=== PATIENT | male | born 1980 | race Caucasian/White ===

== ENCOUNTER 2017-05-15 11:35 | Emergency (ER) | payer SELFPAY ==
[2017-05-15] MEDS ORDERED: METRONIDAZOLE 250 MG TABLET PO ONE (11:36)
--- NOTE | 2017-05-15 11:40 | Emergency Department Record ---
History of Present Illness - General Stated complaint: exposure Time Seen by Provider: 05/15/17 11:36 Source: Patient Mode of Arrival: Ambulatory Limitations: No limitations - History of Present Illness Initial comments: 37 yo male presents after STD exposure. His significant other tested positive for trichomonas. He is completely asymptomatic. He presents for treatment. Complaint: Other (STD Trichomonas exposure) -: Unknown Radiation: None Severity: Mild Consistency: Other Improves with: Other Worsens with: Sexual intercourse, Other Reports: Denies other symptoms - Related Data Allergies Allergy/AdvReac Type Severity Reaction Status Date / Time No Known Drug Allergies Allergy Verified 05/15/17 11:39 Review of Systems Constitutional: Denies: Chills, Fever, Malaise, Weakness Eyes: Denies: Eye discharge ENT: Denies: Congestion, Throat pain Respiratory: Denies: Cough Cardiovascular: Denies: Chest pain, Syncope Endocrine: Denies: Fatigue Gastrointestinal: Denies: Abdominal pain, Diarrhea, Nausea, Vomiting Genitourinary: Denies: Dysuria, Frequency, Hematuria, Incontinence, Retention, Testicular pain, Testicular mass, Urgency Musculoskeletal: Denies: Back pain Skin: Denies: Bruising, Change in color, Rash Neurological: Denies: Headache Psychiatric: Denies: Anxiety Hematological/Lymphatic: Denies: Blood Clots, Easy bleeding, Easy bruising, Swollen glands Physical Exam - General General Appearance: Alert, Oriented x3, Cooperative, No acute distress Limitations: No limitations - Head Head exam: Normal inspection - Eye Eye exam: Normal appearance - ENT ENT exam: Normal exam Ear exam: Normal external inspection Nasal Exam: Normal inspection Mouth exam: Normal external inspection - Neck Neck exam: Normal inspection - Respiratory Respiratory exam: negative: Respiratory distress - Rectal Rectal exam: Deferred - exam: Deferred - Neurological Neurological exam: Alert, Oriented X3. negative: Altered - Psychiatric Psychiatric exam: Normal affect, Normal mood - Skin Skin exam: Dry, Intact, Normal color, Warm Disposition Disposition: Discharge Clinical Impression: STD exposure Disposition: Home, Self-Care Condition: (1) Good Instructions: Trichomoniasis (ED) Additional Instructions: No unprotected sex one week You have cultures sent. If they are positive your will be called Time of Disposition: 11:39 Quality - Quality Measures Quality Measures: N/A - Blood Pressure Screening Does Patient Have Any of the Following: No Systolic Measurement: ~ Screening for High Blood Pressure: < Pre-Hypertensive BP, F/U Documented > [ G8950] Pre-Hypertensive Follow-up Interventions: Referral to alternative/primary care provider.
[2017-05-15 12:36] LABS: URINE APPEARANCE SL CLOUDY; URINE BILIRUBIN NEGATIVE (NEGATIVE); URINE BLOOD NEGATIVE (NEGATIVE); URINE COLOR YELLOW; URINE GLUCOSE (UA) NEGATIVE (NEGATIVE); URINE KETONE NEGATIVE (NEGATIVE); URINE LEUKOCYTE ESTERASE NEGATIVE (NEGATIVE); URINE NITRITE NEGATIVE (NEGATIVE); URINE PROTEIN NEGATIVE (NEGATIVE); URINE UROBILINOGEN 0.2 E.U./dL (0.20 - 1.00)
== END 2017-05-15 11:55 | disposition home or self-care (01) ==
LOC: ER 11:35
DX: Z20.2 Contact with and (suspected) exposure to infections with a predominantly sexual mode of transmission (principal)
CPT/HCPCS: 81003; 99283

== ENCOUNTER 2018-03-06 10:25 | Emergency (ER) | payer MEDICAID ==
[2018-03-06] MEDS ORDERED: MAGNESIUM HYDROXIDE/AL HYDROX 30 ML, LIDOCAINE VISC 2% 15ML 15 ML PO ONE ×2 (11:15)
[2018-03-06] MEDS ORDERED: 0.9 % SODIUM CHLORIDE 1000ML 1,000 ML IV PRN (11:16)
--- NOTE | 2018-03-06 11:21 | Emergency Department Record ---
History of Present Illness - General Chief Complaint: Abdominal Pain Stated Complaint: ABD PAIN Time Seen by Provider: 03/06/18 11:09 Source: Patient Mode of Arrival: Ambulatory - History of Present Illness Initial Comments: epigastric pain and he was using motrin for a nose injury but stopped when his epigastric pain started on mar 03 and he stopped his augmentin which was for a sinus infection which is better and he has three pills left. No Alcohol and he has used pepto and he has black stool. Onset/Timin -: Days(s) Location: Epigastric Radiation: None Migration to: No migration Severity: Moderate Severity scale (1-10): 7 Quality: Sharp, Stabbing Consistency: Constant, Intermittent Improves With: Nothing Worsens With: Eating Associated Symptoms: Denies other symptoms - Related Data Previous Rx's Medication Instructions Recorded Omeprazole 20 mg PO DAILY #30 cap.dr 03/06/18 Sucralfate [Carafate] 1 g PO QID #30 udc 03/06/18 Sucralfate [Carafate] 1 gm PO QIDACHS #30 tablet 03/06/18 Allergies Allergy/AdvReac Type Severity Reaction Status Date / Time No Known Drug Allergies Allergy Verified 03/06/18 10:28 Travel Screening - Travel/Exposure Within Last 30 Days Have you traveled within the last 30 days?: No - Travel/Exposure Within Last Year Have you traveled outside the [place] in the last year?: No - Additonal Travel Details Have you been exposed to anyone with a communicable illness?: No - Travel Symptoms Symptom Screening: None Review of Systems Reviewed: No additional complaints except as noted below Constitutional: Reports: As per HPI. Denies: Chills, Fever, Malaise, Night sweats, Weakness, Weight change Eyes: Reports: As per HPI. Denies: Eye discharge, Eye pain, Photophobia, Vision change ENT: Reports: As per HPI. Denies: Congestion, Dental pain, Ear pain, Epistaxis , Hearing loss, Throat pain Respiratory: Reports: As per HPI. Denies: Cough, Dyspnea, Hemoptysis, Stridor, Wheezes Cardiovascular: Reports: As per HPI. Denies: Arrhythmia, Chest pain, Dyspnea on exertion, Edema, Murmurs, Orthopnea, Palpitations, Paroxysmal nocturnal dyspnea, Rheumatic Fever, Syncope Endocrine: Reports: As per HPI. Denies: Fatigue, Heat or cold intolerance, Polydipsia, Polyuria Gastrointestinal: Reports: As per HPI, Abdominal pain. Denies: Constipation, Diarrhea, Hematemesis, Hematochezia, Melena, Nausea, Vomiting Genitourinary: Reports: As per HPI. Denies: Dysuria, Frequency, Hematuria, Incontinence, Retention, Testicular pain, Testicular mass, Urgency Musculoskeletal: Reports: As per HPI. Denies: Arthralgia, Back pain, Gout, Joint swelling, Myalgia, Neck pain Skin: Reports: As per HPI. Denies: Bruising, Change in color, Change in hair/ nails, Lesions, Pruritus, Rash Neurological: Reports: As per HPI. Denies: Abnormal gait, Confusion, Headache, Numbness, Paresthesias, Seizure, Tingling, Tremors, Vertigo, Weakness Psychiatric: Reports: As per HPI. Denies: Anxiety, Auditory hallucinations, Depression, Homicidal thoughts, Suicidal thoughts, Visual hallucinations Hematological/Lymphatic: Reports: As per HPI. Denies: Anemia, Blood Clots, Easy bleeding, Easy bruising, Swollen glands Past Medical History - SOCIAL HISTORY Smoking Status: Current every day smoker Alcohol Use: None Drug Use: Heavy Drug Use Detail:: Marijuana - RESPIRATORY Hx Respiratory Disorders: No - CARDIOVASCULAR Hx Cardio Disorders: No - NEURO Hx Neuro Disorders: No - GI Hx GI Disorders: No - Hx Genitourinary Disorders: No - ENDOCRINE Hx Endocrine Disorders: No - MUSCULOSKELETAL Hx Musculoskeletal Disorders: No - PSYCH Hx Psych Problems: No - HEMATOLOGY/ONCOLOGY Hx Hematology/Oncology Disorders: No Family Medical History Any Significant Family History?: No Physical Exam - General General Appearance: Alert, Oriented x3, Cooperative, Mild distress - Head Head exam: Normal inspection - Eye Eye exam: Normal appearance, PERRL Pupils: Normal accommodation - ENT ENT exam: Normal exam, Mucous membranes moist, Normal external ear exam, Normal orophraynx, TM's normal bilaterally Ear exam: Normal external inspection. negative: External canal tenderness Nasal Exam: Normal inspection. negative: Discharge, Sinus tenderness Mouth exam: Normal external inspection, Tongue normal Teeth exam: Normal inspection. negative: Dental caries Throat exam: Normal inspection. negative: Tonsillar erythema, Tonsillar exudate - Neck Neck exam: Normal inspection, Full ROM. negative: Tenderness - Respiratory Respiratory exam: Normal lung sounds bilaterally. negative: Respiratory distress - Cardiovascular Cardiovascular Exam: Regular rate, Normal rhythm, Normal heart sounds - GI/Abdominal GI/Abdominal exam: Soft, Normal bowel sounds. negative: Tenderness - Rectal Rectal exam: Deferred - exam: Deferred - Extremities Extremities exam: Normal inspection, Full ROM, Normal capillary refill. negative: Tenderness - Back Back exam: Reports: Normal inspection, Full ROM. Denies: Muscle spasm, Rash noted, Tenderness - Neurological Neurological exam: Alert, Normal gait, Oriented X3, Reflexes normal - Psychiatric Psychiatric exam: Normal affect, Normal mood - Skin Skin exam: Dry, Intact, Normal color, Warm Course Vital Signs 03/06/18 10:29 Temperature 97.8 F Pulse Rate 658 H Respiratory 18 Rate Blood Pressure 106/83 Pulse Ox 100 - Reevaluation(s) Reevaluation #1: rectal exam and hemoccult stool neg done in ED, brown loose stool 03/06/18 12:13 Reevaluation #2: feeling better 03/06/18 12:18 Medical Decision Making - Lab Data Result diagrams: 03/06/18 11:20 03/06/18 11:20 Disposition Clinical Impression: Abdominal pain Qualifiers: Abdominal location: epigastric Qualified Code(s): R10.13 - Epigastric pain Gastritis Qualifiers: Gastritis type: unspecified gastritis Chronicity: acute Gastritis bleeding: without bleeding Qualified Code(s): K29.00 - Acute gastritis without bleeding Disposition: Home, Self-Care Condition: (1) Good Instructions: Gastritis (ED) Additional Instructions: follow up with family in 3 days No motrin ,advil or alleve or ibuprofen use tylenol for pain Prescriptions: Omeprazole 20 mg PO DAILY #30 Sucralfate [Carafate] 1 g PO QID #30 udc Sucralfate [Carafate] 1 gm PO QIDACHS #30 tablet Forms: Patient Portal Access Time of Disposition: 12:18 Quality - Quality Measures Quality Measures: N/A - Blood Pressure Screening Does Patient Have Any of the Following: No Blood Pressure Classification: Pre-Hypertensive BP Reading Systolic Measurement: 106 Diastolic Measurement: 83 Screening for High Blood Pressure: < Pre-Hypertensive BP, F/U Documented > [ G8950] Pre-Hypertensive Follow-up Interventions: Referral to alternative/primary care provider.
[2018-03-06 11:33] LABS: BASO % 0.4 % (0-6); EOS % 8.4 % (0-6); GRAN % 50.8 % (47-80); HEMATOCRIT 43.2 % (42.0-52.0); HEMOGLOBIN 14.2 gm/dl (14.0-18.0); MEAN CELL VOLUME 94.1 fl (81-97); MEAN CORPUSCULAR HEMOGLOBIN 30.9 pg (27-33); MEAN CORPUSCULAR HGB CONC 32.9 g/dl (32-36); MEAN PLATELET VOLUME 10.3 fl (7.4-10.4); MONO % 11.4 % (0-9); PLATELET COUNT 243 K/uL (130-400); RED BLOOD COUNT 4.59 M/uL (4.40-5.70); RED CELL DISTRIBUTION WIDTH 13.7 % (11.5-14.5); WHITE BLOOD COUNT W/O DIFF 7.2 K/uL (4.2-12.2)
[2018-03-06 11:42] LABS: BLOOD UREA NITROGEN 10 mg/dL (6-20); CREATININE 0.8 mg/dL (0.7-1.2); EST GLOMERULAR FILTRATION RATE > 60 mL/min
[2018-03-06 11:42] LABS: URINE APPEARANCE CLEAR; URINE BILIRUBIN NEGATIVE (NEGATIVE); URINE BLOOD NEGATIVE (NEGATIVE); URINE COLOR YELLOW; URINE GLUCOSE (UA) NEGATIVE (NEGATIVE); URINE KETONE NEGATIVE (NEGATIVE); URINE LEUKOCYTE ESTERASE NEGATIVE (NEGATIVE); URINE NITRITE NEGATIVE (NEGATIVE); URINE PROTEIN NEGATIVE (NEGATIVE); URINE UROBILINOGEN 0.2 E.U./dL (0.20 - 1.00)
[2018-03-06 11:43] LABS: TOTAL PROTEIN 6.9 g/dL (6.6-8.7)
[2018-03-06 11:45] LABS: GLUCOSE,RANDOM 87 mg/dL (74-109)
[2018-03-06 11:46] LABS: AMPHETAMINE SCREEN URINE DETECTED; BARBITURATE SCREEN URINE NOT DETECTED; BENZODIAZEPINE SCREEN URINE NOT DETECTED; COCAINE SCREEN URINE NOT DETECTED; METHADONE SCREEN URINE NOT DETECTED; METHAMPHETAMINE SCREEN NOT DETECTED; OPIATE SCREEN URINE NOT DETECTED; OXYCODONE SCREEN URINE NOT DETECTED; PHENCYCLIDINE SCREEN URINE NOT DETECTED; PROPOXYPHENE SCREEN URINE NOT DETECTED; THC SCREEN URINE DETECTED; TRICYCLIC ANTIDEPRESSANT SCRN NOT DETECTED
[2018-03-06 11:48] LABS: ALBUMIN 4.2 g/dL (4.0-5.0); ALKALINE PHOSPHATASE 50 U/L (40-129); ALT/SGPT 11 U/L (<41); AST/SGOT 13 U/L (10.0-50.0)
[2018-03-06 11:50] LABS: BILIRUBIN,DIRECT < 0.2 mg/dL (0-0.3)
== END 2018-03-06 12:30 | disposition home or self-care (01) ==
LOC: ER 10:25
DX: K29.00 Acute gastritis without bleeding (principal); R10.13 Epigastric pain; F17.210 Nicotine dependence, cigarettes, uncomplicated
CPT/HCPCS: 80048; 80076; 80305; 81003; 83690; 85025; 99284

== ENCOUNTER 2018-04-08 10:32 | Emergency (ER) | payer MEDICAID ==
[2018-04-08] MEDS ORDERED: CEPHALEXIN 500 MG CAPSULE PO STA (10:51)
--- NOTE | 2018-04-08 11:04 | Emergency Department Record ---
History of Present Illness - General Chief Complaint: Wound, puncture Stated Complaint: NAIL PUNCTURE Time Seen by Provider: 04/08/18 10:46 Source: Patient Mode of Arrival: Ambulatory Limitations: No limitations - History of Present Illness Initial Commments: The patient is here due to L wrist pain. He fell 2 days ago and sustained 2 PW' s from a nail to the proximal L hypothenar area. Since he has developed pain in that area along with anterior L wrist pain and slight swelling. He is having "stiffness" with ROM of the L 4th and 5th fingers but no pain or weakness. There is no numbness or weakness. His Td is not UTD. Onset/Timin -: Days(s) Place: Home Context: Accidental Associated Symptoms: Other - [place] Coma Scale Eye Response: (4) Open spontaneously Motor Response: (6) Obeys commands Verbal Response: (5) Oriented [place] Total: 15 - Related Data Hx Tetanus Toxoid Vaccination: No Patient Tetanus UTD (within 5 yrs): No Previous Rx's Medication Instructions Recorded Cephalexin [Keflex] 500 mg PO QID #28 cap 04/08/18 Allergies Allergy/AdvReac Type Severity Reaction Status Date / Time No Known Drug Allergies Allergy Verified 04/08/18 10:37 Travel Screening - Travel/Exposure Within Last 30 Days Have you traveled within the last 30 days?: No - Travel/Exposure Within Last Year Have you traveled outside the [place] in the last year?: No - Additonal Travel Details Have you been exposed to anyone with a communicable illness?: No - Travel Symptoms Symptom Screening: None Review of Systems Constitutional: Denies: Chills, Fever Eyes: Denies: Eye discharge ENT: Denies: Congestion Respiratory: Denies: Cough, Dyspnea Past Medical History - SOCIAL HISTORY Smoking Status: Current every day smoker Alcohol Use: None Drug Use: Heavy Drug Use Detail:: Marijuana - RESPIRATORY Hx Respiratory Disorders: No - CARDIOVASCULAR Hx Cardio Disorders: No - NEURO Hx Neuro Disorders: No - GI Hx GI Disorders: No - Hx Genitourinary Disorders: No - ENDOCRINE Hx Endocrine Disorders: No - MUSCULOSKELETAL Hx Musculoskeletal Disorders: No - PSYCH Hx Psych Problems: No - HEMATOLOGY/ONCOLOGY Hx Hematology/Oncology Disorders: No Family Medical History Any Significant Family History?: No Physical Exam - General General Appearance: Alert, Cooperative, No acute distress - Head Head exam: Atraumatic, Normocephalic - Eye Eye exam: Normal appearance - Extremities Extremities exam: Full ROM, Normal capillary refill, Tenderness. negative: Normal inspection (There is very slight swelling and erythema but no warmth to the anterior L wrist area. There is mild tenderness in the same area. There are 2 closed minimally tender PW's to the proximal hypothenar area. There is no swelling or erythema to the palm. ) Image of Hand: 1 - Area of 2 PW's. 2 - Area of slight swelling, tenderness and erythema. - Neurological Neurological exam: Alert. negative: Motor sensory deficit Course Vital Signs 04/08/18 10:38 Temperature 98.1 F Pulse Rate 89 Respiratory 16 Rate Pulse Ox 97 - Reevaluation(s) Reevaluation #1: I did discuss the need for oral Abx's with the patient and the need for F/U. He is to return to the ER for any worsening symptoms. 04/08/18 11:19 Medical Decision Making - Data Complexity MDM Data: X-Ray Ordered and/or Reviewed - Radiology Data Radiology results: Report reviewed (L wrist: Neg for acute changes.) Disposition Disposition: Discharge Clinical Impression: Injury, wrist Qualifiers: Encounter type: initial encounter Laterality: left Qualified Code(s): S69.92XA - Unspecified injury of left wrist, hand and finger(s), initial encounter Disposition: Home, Self-Care Condition: (2) Stable Instructions: Wound Infection (ED) Additional Instructions: Please use warm compresses to the L wrist during the day and take Tylenol for pain. Take the Keflex as directed and return to the ER for any worsening symptoms or pain, redness or any fever. Prescriptions: Cephalexin [Keflex] 500 mg PO QID #28 cap Forms: Patient Portal Access Time of Disposition: 11:26 Quality - Quality Measures Quality Measures: N/A - Blood Pressure Screening View Details: Yes Does Patient Have Any of the Following: No Systolic Measurement: ~ Screening for High Blood Pressure: < First Hypertensive BP, F/U Documented > [ G8950] First Hypertensive Follow-up Interventions: Referral to alternative/primary care provider.
[2018-04-08] MEDS ORDERED: Diph,Pert(Acell),Tet Vac 0.5 ML SYR IM ONE (11:22)
--- NOTE | 2018-04-09 10:41 | RADIOLOGY REPORT ---
EXAM: LEFT WRIST HISTORY: PAIN. TECHNIQUE: Three views of the left wrist were performed. FINDINGS: There are remote fracture deformities of the distal left radius and ulna. No evidence of acute fracture or dislocation. IMPRESSION: REMOTE FRACTURE DEFORMITIES OF THE DISTAL LEFT RADIUS AND ULNA. NO ACUTE PROCESS. JOB NUMBER: [id number] MTDD
== END 2018-04-08 11:37 | disposition home or self-care (01) ==
LOC: ER 10:32
DX: S61.432A Puncture wound without foreign body of left hand, initial encounter (principal); S61.532A Puncture wound without foreign body of left wrist, initial encounter; W19.XXXA Unspecified fall, initial encounter; F17.210 Nicotine dependence, cigarettes, uncomplicated; Y92.009 Unspecified place in unspecified non-institutional (private) residence as the place of occurrence of the external cause
CPT/HCPCS: 90715; 96372; 99283